=== PATIENT | male | born 1975 | race Caucasian/White ===

== ENCOUNTER 2016-07-14 19:08 | Emergency (ER) | payer BC, OTHER ==
[~2016-07-14] VITALS: Ht 180.3 cm; Wt 90.7 kg
[2016-07-14 20:35] VITALS: BP 141/92
--- NOTE | 2016-07-14 21:00 | PHYS DOC ---
Past Medical History Past Medical History: No Pertinent History Past Surgical History: No Surgical History Smokin Pack Per Day Alcohol Use: Occasionally Drug Use: None Adult General Chief Complaint Chief Complaint: SHOULDER INJURY HPI HPI Patient is a 41 year old male who presents with right shoulder pain after injury at 1300 today. The patient states that he was working with a machine at home when the machine tipped forward. The machine hit his right shoulder. He denies any other injuries. He does not have any numbness or tingling in the extremity. He sees a PCP at [facility]. Review of Systems Review of Systems Constitutional: Denies fever or chills. [] Musculoskeletal: Denies back pain. Reports right shoulder pain. Integument: Denies rash or skin lesions. [] Neurologic: Denies headache, focal weakness or sensory changes. [] Allergies Allergies Allergies Coded Allergies Type Severity Reaction Last Updated Verified No Known Drug Allergies 04/21/15 No Physical Exam Physical Exam Constitutional: Well developed, well nourished, no acute distress, non-toxic appearance. [] HENT: Normocephalic, atraumatic, oropharynx moist. [] Eyes: PERRLA, EOMI, conjunctiva normal, no discharge. [] Neck: Normal range of motion, no tenderness, supple, no stridor. [] Skin: Warm, dry, no erythema, no rash. There is no laceration, abrasion, or ecchymosis. Back: No midline tenderness, no CVA tenderness. [] Extremities: Right A/C joint tenderness, ROM significantly decreased in the right shoulder due to pain, no edema. 2+ radial and ulnar pulses. Light touch sensation intact in the fingers. Less than 2 second capillary refill in the fingers. No tenderness of the upper arm, elbow, forearm, wrist, or hand. Full range of motion with the exception of the shoulder. Neurologic: Alert and oriented X 3, normal motor function, normal sensory function, no focal deficits noted. [] Psychologic: Affect normal, judgement normal, mood normal. [] Current Patient Data Vital Signs Vital Signs Date Time Temp Pulse Resp B/P Pulse Ox O2 Delivery O2 Flow Rate FiO2 07/14/16 20:35 98.1 74 18 99 Room Air 98.1 EKG EKG [] Radiology/Procedures Radiology/Procedures Three-view x-ray of the right shoulder reviewed and interpreted by myself with Dr. Lay. There are no acute fractures or dislocations. Course & Med Decision Making Course & Med Decision Making Pertinent Labs and Imaging studies reviewed. (See chart for details) [] [place] Disclaimer Dragon Disclaimer This electronic medical record was generated, in whole or in part, using a voice recognition dictation system. Departure Departure Impression: Primary Impression: Shoulder pain, right Disposition: HOME, SELF-CARE Condition: STABLE Referrals: MODESTA OSWALD II, MD Patient Instructions: Shoulder Pain, [id number] Additional Instructions: There were no broken bones or dislocations seen on your xray. Please take the prescribed medications as directed. Do not drive or operate heavy machinery while taking these medications. Please follow-up with the orthopedic doctor listed below if your pain continues. Return to the emergency department if you have any new or concerning symptoms. Scripts Methocarbamol (Robaxin)500 Mg Drntbc330 Mg PO QID #20 TAB Prov:NAIDA GUERRA 07/14/16 Hydrocodone/Apap 5-325 (Rye 5-325 Tablet)1 Each Tablet1 Tab PO PRN Q6HRS PRN PAIN #20 TAB Prov:NAIDA GUERRA 07/14/16 Problem Qualifiers Primary Impression: Shoulder pain, right Chronicity: acute Qualified Code: M25.511 - Pain in right shoulder NAIDA GUERRA Jul 14, 2016 21:00
[2016-07-14] MEDS ORDERED: METH-37 PO (21:15)
[2016-07-14] MEDS ORDERED: HYDR-971 PO (21:15)
--- NOTE | 2016-07-15 08:58 | RAD ---
Examination: 3 views of the right shoulder History: History of right shoulder pain, trauma comparison: None available Findings: The humeral head is within the glenoid. There is no acute fracture or dislocation identified. Impression No acute osseous findings.
== END 2016-07-14 21:25 | disposition home or self-care (01) ==
LOC: ER 19:08
DX: M25.511 Pain in right shoulder (principal); F17.200 Nicotine dependence, unspecified, uncomplicated; W31.89XA Contact with other specified machinery, initial encounter; Y93.89 Activity, other specified; Y92.89 Other specified places as the place of occurrence of the external cause; Y99.8 Other external cause status
CPT/HCPCS: 73030; 99284

== ENCOUNTER 2019-06-15 10:59 | Observation (INO) | payer BC ==
[2019-06-15] VITALS (9 sets, daily range): BP systolic 127–152; BP diastolic 84–96
[~2019-06-15] VITALS: Ht 180.3 cm; Wt 90.0 kg
[~2019-06-15 10:59] MED LIST: HYDR-3164 PO; HYDROmorphone 2 MG/ML VIAL IV PRN; IV RINGERS,LACTATED 1000ML 1,000 ML IV SCH; LIDOCAINE 1% PF 2 ML VIAL. ID PRN; METH-37 PO; MORPHINE SULFATE 2 MG/ML VIAL. IV PRN; ONDANSETRON PF 4 MG/2 ML VIAL. IV PRN; PROCHLORPERAZINE 10 MG/2 ML VIAL. IV PRN; fentaNYL PF VIAL 100 MCG/2 ML VIAL IV PRN
[2019-06-15] MEDS ORDERED: LIDOCAINE 1%/EPI 1:100,000 20 ML VIAL. ONE (11:14)
[2019-06-15] MEDS ORDERED: EPINEPHrine VIAL 30 MG/30 ML VIAL ONE (11:18)
[2019-06-15] MEDS ORDERED: SUCCINYLCHOLINE 200 MG/10 ML VIAL. ONE (11:37)
[2019-06-15] MEDS ORDERED: LIDOCAINE 2% PF 5 ML VIAL. ONE (11:41)
[2019-06-15] MEDS ORDERED: FAMOTIDINE 20 MG/2 ML VIAL ONE (11:41)
[2019-06-15] MEDS ORDERED: PROPOFOL 20 ML IV ONE (11:41)
[2019-06-15] MEDS ORDERED: ONDANSETRON PF 4 MG/2 ML VIAL. ONE (11:41)
[2019-06-15] MEDS ORDERED: fentaNYL PF VIAL 100 MCG/2 ML VIAL ONE ×2 (11:42→14:17)
[2019-06-15] MEDS ORDERED: MIDAZOLAM HCL/PF 2 MG/2 ML VIAL. ONE (11:43)
[2019-06-15] MEDS ORDERED: REMIFENTANIL 2 MG VIAL. IV ONE (12:44)
[2019-06-15] MEDS ORDERED: ceFAZolin 2GM PREMIX 2 GM/50 ML BAG IV ONE (14:00)
[2019-06-15] MEDS ORDERED: SEVOFLURANE > 120 MINUTES. IH ONE (14:18)
[2019-06-15] MEDS ORDERED: NEOMY/BACITR/POLYMYXIN OINT PACKET. TP ONE ×3 (14:31→14:49)
[2019-06-15] MEDS ORDERED: ONDANSETRON PF 4 MG/2 ML VIAL. IVP PRN (15:00)
[2019-06-15] MEDS ORDERED: 0.9 % SODIUM CHLORIDE 10 ML DISP.SYRIN. IV PRN (15:00)
[2019-06-15] MEDS ORDERED: PROCHLORPERAZINE 10 MG/2 ML VIAL. IV PRN (15:00)
[2019-06-15] MEDS ORDERED: METOCLOPRAMIDE HCL 10 MG/2 ML VIAL. IV PRN (15:00)
[2019-06-15] MEDS ORDERED: NALOXONE 0.4 MG/ML VIAL. IV PRN (15:00)
[2019-06-15] MEDS ORDERED: diphenhydrAMINE HCL 25 MG CAPSULE PO PRN (15:00)
[2019-06-15] MEDS ORDERED: ACETAMINOPHEN 325 MG TABLET. PO PRN (15:00)
--- NOTE | 2019-06-15 15:14 | PDOC4 ---
IMMEDIATE POST OP NOTE Date: Jun 15, 2019 Pre-Op Diagnosis right parotid mass Post-Op Diagnosis same as above Procedure Performed excision of right parotid tail mass Surgeon Dr. Yadi Mae Shaker Washer Dr. Nat Pan Anesthesiologist Dr. Perkins Anesthesia Type: General Blood Loss <10mL Specimens Obtained right parotid mass Findings 1. 2cm mass within right parotid tail Complications none Operative Note Dictation # [id number] YADI MAE MD Jun 15, 2019 15:14
[2019-06-15] MEDS: fentaNYL PF VIAL 100 MCG/2 ML VIAL IV PRN ×2 (15:25→15:58)
--- NOTE | 2019-06-15 16:17 | OP ---
DATE OF SURGERY: 06/15/2019 PREOPERATIVE DIAGNOSIS: Right parotid mass. POSTOPERATIVE DIAGNOSIS: Right parotid mass. PROCEDURE PERFORMED: Excision of right parotid tail mass. SURGEON: Yadi Mae MD ANESTHESIA: General endotracheal anesthesia. STRIKER OFF: Jovanna Pan MD. ANESTHESIOLOGIST: Stephen Perkins MD INDICATIONS FOR SURGERY: The patient is a 43-year-old male who developed a right parotid mass incidentally several months ago. 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 The patient had significant neck swelling and infection after the FNA and due to the inflammation and ongoing symptoms from this lesion, he desires surgical excision. The decision was made for the patient to undergo above procedure after risks, benefits, and alternatives of surgery were thoroughly discussed with the patient and informed consent was obtained. ESTIMATED BLOOD LOSS: Less than 10 mL. SPECIMEN: Right parotid mass. INTRAOPERATIVE FINDINGS: 1. A 2 cm mass present within the superficial aspect of the right parotid tail. This was well circumscribed and surrounding inflammatory cells within the parotid gland near that area. 2. The mass was limited to the parotid tail and therefore a formal superficial parotidectomy was not performed. The great auricular nerve was adjacent and abutting the mass and this was carefully dissected away from the lesion, and it was intact at the end of the case. DESCRIPTION OF THE PROCEDURE: The patient was brought back to the operating room per Anesthesia and intubated in standard fashion. The patient was then turned 90 degrees in the room. A planned modified Abimael's incision was marked and injected with subcutaneous injection of 10 mL of 1% lidocaine with 1:100,000 epinephrine. I also set up the facial nerve monitor for a 4 Channel monitoring of the facial nerve throughout the case. Dr. Pan assisted throughout the case to help with dissection and monitoring of the facial nerve. The patient was then prepped and draped in a standard fashion. Due to the location of the mass within the deep parotid tail aspect, I only started the incision in the postauricular area as well as to the inferior aspect of the ear lobule. It did not extend the preauricular incision at this time. I then elevated deep subcutaneous in the deep dermal plane overlying the sternocleidomastoid muscle. I then elevated the skin and soft tissue anteriorly until I was safely anterior to the mass in the neck. I dissected onto the anterior wall of the sternocleidomastoid musculature and in doing so, I encountered the external jugular vein as well as the great auricular nerve. I carefully traced this superiorly and in doing so, I encountered the mass within the parotid tail, which was very superficial and posterior. I then carefully dissected around the mass and using bipolar electrocautery, dissected the mass away from the great auricular nerve. I then dissected in a wide plane surrounding the mass to completely remove all the inflamed parotid tissue and I took this in multiple layers through the parotid gland to carefully remove the mass in bulk. We took care using bipolar electrocautery as to not damage any of the branches of the facial nerve, which were far anterior to where this mass was located. Once the mass was completely excised, this was sent for permanent pathology. The surgical bed was then thoroughly irrigated and adequate hemostasis was confirmed. We palpated the parotid gland and the deep neck and could not palpate any further mass present within the parotid gland itself. A 10-Mongolian fully fluted drain was then placed within the surgical bed. This was brought out through a stab incision posterior to our incision and sutured to the skin using 3-0 Prolene. The deep dermal layer was then closed with buried interrupted sutures of 4-0 Vicryl and a horizontal mattress suture of 5-0 Prolene was used to close the skin incision. Triple antibiotic ointment was placed along the incision. The patient was turned back over to Anesthesia and awoke without complication. Our sponge, needle, instrument counts were correct at the end of the case. COMPLICATIONS: None. DISPOSITION: Stable and transferred to recovery room. YADI MAE MD DR: ALISHA/jose roberto JOB#: [id number] / [id number] DARIO
[2019-06-15] MEDS: MORPHINE SULFATE 2 MG/ML VIAL. IV PRN ×3 (16:59→21:13)
[2019-06-15] MEDS: IV RINGERS,LACTATED 1000ML 1,000 ML IV SCH (17:00)
[2019-06-15] MEDS: oxyCODONE IR 5 MG TABLET PO PRN ×2 (17:52→21:12)
[2019-06-15] MEDS: CELECOXIB 100 MG CAPSULE. PO SCH (21:13)
[2019-06-15] MEDS: MUPIROCIN 2 % TOPICAL CREAM 30GM TUBE. TP SCH (21:13)
[2019-06-15] MEDS: DOCUSATE SODIUM 100 MG CAPSULE. PO SCH (21:13)
[2019-06-15] MEDS: GABAPENTIN 300 MG CAPSULE. PO SCH (21:14)
[2019-06-16] MEDS: IV RINGERS,LACTATED 1000ML 1,000 ML IV SCH ×2 (00:59→10:05)
[2019-06-16] MEDS: oxyCODONE IR 5 MG TABLET PO PRN ×3 (01:19→07:29)
[2019-06-16] MEDS: MORPHINE SULFATE 2 MG/ML VIAL. IV PRN (01:19)
--- NOTE | 2019-06-16 01:30 | NUR ---
Patient stated his mouth became very "clenched" and numb from having so much pain. Pain medication was administered afterward and ice pack was placed on surgery site. Re-assessed pt. again around 0230 and he stated the numbness had gone. Will continue to monitor.
[2019-06-16 03:00] VITALS: BP 127/87
[2019-06-16] MEDS: GABAPENTIN 300 MG CAPSULE. PO SCH (05:33)
[2019-06-16 07:00] VITALS: BP 137/82
[2019-06-16] MEDS: MUPIROCIN 2 % TOPICAL CREAM 30GM TUBE. TP SCH (09:09)
[2019-06-16] MEDS: CELECOXIB 100 MG CAPSULE. PO SCH (09:10)
[2019-06-16] MEDS: DOCUSATE SODIUM 100 MG CAPSULE. PO SCH (09:10)
--- NOTE | 2019-06-16 10:05 | NUR ---
SW following. Discussed with RN, pt from home. RN advised no SW needs at this time and anticipates pt discharging home today with self care.
[2019-06-16 11:00] VITALS: BP 125/88
[2019-06-16] MEDS ORDERED: CELE100C PO (12:32)
[2019-06-16] MEDS ORDERED: ACET325T9 PO (12:33)
[2019-06-16] MEDS ORDERED: MUPI15CR8 TP (12:33)
[2019-06-16] MEDS ORDERED: OXYC5TAB4 PO (12:33)
--- NOTE | 2019-06-16 13:23 | NUR ---
Discharge instructions and belongings reviewed with patient, verbalized understanding. Patient was escorted out via ambulation by Shamika CASTILLO accompanied by his .
--- NOTE | 2019-06-17 18:52 | PATHOLOGY ---
[facility] Accession Number: [id number] . 01 Material submitted: . parotid gland - RIGHT PAROTID MASS. Modifiers: right . 01 Clinical history: . Tumor of parotid gland. . 02 Diagnosis: Segments of parotid gland and fibroadipose tissue, right parotid mass excision: - Warthin tumor. See comment. - Reactive changes of periparotid lymph nodes. . (JPM:mm; 06/17/2019) [facility] 06/17/2019 1728 Local . 02 Comment: Sections of the right parotid mass excision reveal a Warthin tumor, measuring approximately 1.2 cm in greatest dimension. The tumor is well-circumscribed and appears to be excised. There are several small periparotid lymph nodes showing reactive changes. There is no evidence of malignancy. . (JPM:mml; 06/17/2019) . 02 Electronically signed: . Juan Staples MD, Pathologist NPI- [id number] . 01 Gross description: . Received in formalin labeled "Stevens II, Pasquale, right parotid mass" is a 4 g aggregate of multiple yellow-preston soft tissue fragments measuring in aggregate 3.0 x 3.0 x 2.0 cm. The specimen is not inked due to its fragmented nature. The specimen is sectioned to reveal a multicystic preston-brown nodule measuring 1.2 x 0.7 x 0.7 cm, located within the largest fragment. The remaining cut surfaces are yellow-preston and homogeneous. The specimen is submitted entirely as follows: A1-A3 entire largest portion (with nodule) A4 remaining smaller portions [place] [place] 06[place]16/2019) SY/C 06/16/2019 1717 Local . 02 Pathologist provided ICD-10: D11.0 . 02 CPT . 236225 Specimen Comment: A courtesy copy of this report has been sent to [phone], [phone] Specimen Comment: [id number] Specimen Comment: Report sent to / DR CRUZ Performed at: 01 [facility] [address] [id number] MD Kevyn Delacruz MD Phone: [phone] Performed at: 02 [facility] [address] [place], [place] [id number] MD Juan Staples MD Phone: [phone]
== END 2019-06-16 13:24 | disposition home or self-care (01) ==
LOC: SURG 10:59 → 4 NORTH 16:11
PROVIDERS: ADMIT Otolaryngology; ATTEND Otolaryngology
DX: D11.0 Benign neoplasm of parotid gland (principal)
CPT/HCPCS: 42410; 88307; 96365; 96366; 96375; 96376; A7015; G0378; G0379; J0330; J0696; J2001; J2250; J2270; J2405; J2704; J3010; J3490; J7120; J0171; A4461